=== PATIENT | male | born 1980 | race Caucasian/White ===

== ENCOUNTER 2018-08-22 10:18 | Inpatient (IN) | payer OTHER, SELFPAY ==
[2018-08-16 12:34] VITALS: BMI 28.8
[2018-08-22] VITALS (15 sets, daily range): BP systolic 109–138; BP diastolic 65–104; PULSE 58–97; RESP 9–20; TEMP 36.1–37.1; O2SAT 92–98; BMI 28.8
--- NOTE | 2018-08-22 | DI.RAD.S_ITS ---
PROCEDURE: XR CERVICAL SPINE 2V OR 3V INDICATIONS: C4-5, C6-7 ACDF (MOBI-C) TECHNIQUE: The 2 view(s) of the cervical spine were acquired. COMPARISON: [facility], , XR CERVICAL SPINE 2 OR 3 VIEWS, 06/16/2018, 10:00. FINDINGS: Bones: Intraoperative AP and lateral views of the cervical spine demonstrate post surgical changes compatible with C5-C6 ACDF, C4-C5 intervertebral disc disc prosthesis placement and C6-C7 intervertebral disc prosthesis placement. There is normal alignment and curvature of the cervical spine. No evidence of fracture or subluxation.. Soft tissues: No prevertebral soft tissue swelling. IMPRESSION: Postsurgical changes compatible with C5-C6 ACDF as well as C4-C5 and C6-C7 disc prosthesis placement. Dictated by: Claudia Jackson MD, PhD on 08/22/2018 at 14:21 Approved by: Claudia Jackson MD, PhD on 08/22/2018 at 14:23
[2018-08-22] MEDS: LACTATED RINGERS 1,000 ML 42 ML IV ×2 (10:45→14:39)
--- NOTE | 2018-08-22 11:30 | PM.PREOP ---
Pre-operative Note Interval Note History & Physical reviewed/Exam performed by Physician: Yes Changes to H&P: No
--- NOTE | 2018-08-22 11:30 | PM.OP.1 ---
Operative Date/Time/Diagnoses Date of procedure: 08/22/18 Time of procedure: 14:02 Pre-op diagnosis: cervical disc herniation with radiculopathy Post-op diagnosis: same Procedure & Clinicians Procedure: C4-5, C6-7 anterior diskectomy an artificial disc replacement Removal of previous anterior cervical fusion plate Use of microscope Same procedure as scheduled: Yes Indications: [age] year old male with intractable pain from cervical disc herniations. He had failed conservative management and requested operative intervention. Risks and benefits of surgery were discussed and appropriate consents were obtained. Surgeon: Sergey Martines Content Curator: Mercedes Garza Anesthesia Type: General Operative Notes Findings: None Closure Type: primary Specimen(s): none sent Prosthetic devices, grafts, tissues, transplants, or devices: Nhung Mobi-C artificial disc replacement removal of Synthes Vectra plate Applied: catheter Estimated Blood Loss (mL): 10 Blood products transfused: none Procedure in detail: Patient was brought to the operating room and intubated on the table. A time-out was performed. Preoperative antibiotics were given. The neck was prepped and draped in the standard sterile fashion. Using a skin fold, we used his previous 3 cm oblique incision on the left side. We used Bovie to go through the platysma and then did a standard anterolateral blunt dissection down to the precervical fascia. Fascia was nicked and elevated up. We exposed the plate for localization. We removed the old Synthes Vectra plate. We then subperiosteally elevated up the longus colli muscles. Self-retaining retractors were placed. Tiger pins were placed under x-ray guidance to be parallel to the endplates at C45. We then brought in the microscope. A scalpel used to perform an annulotomy. We then used a combination of pituitaries and curettes and Kerrison to perform a complete anterior diskectomy at C45. We took down the PLL and used Kerrison to remove any posterior disc material and osteophytes. The posterior disc was very gelatinous and adherent to the dura. We were able to peel it off the dura with the nerve hook but it took some dissection. At the end we could run the nerve hook cephalad caudally and out the foramen and everything was opened. We distracted open with the parallel ore mixer. We then used the horseshoes for sizing. We then used the trials. We then inserted a [id number] Mobi-C artificial disc replacement under fluoroscopic guidance for positioning. The traction was released and x-ray was checked again. We then went down to C67. The retractors were placed at this level. A complete diskectomy was performed with scalpel, pituitaries, and curettes at this level. we took down the PLL and removed the posterior disc material and osteophytes. There was a large extruded HNP on the right that came up as one piece when we released the PLL. We used the nerve hook to confirm that everything was adequately decompressed. We trialed and placed another [id number] size Mobi-C ADR under fluoroscopic guidance. The traction was released and x-rays were checked again. The self-retaining retractors and Tiger pins were removed and final x-rays taken. The wound was irrigated. There was no bleeding. The carotid was beating nicely. The platysma was closed. The superficial was closed. The skin was closed. A sterile dressing was placed. They were then extubated and brought to recovery room with no complications. Complications: none Condition: stable Disposition: PACU Plan for aftercare: Inpatient overnight.
--- NOTE | 2018-08-22 11:34 | P.OP_ITS ---
Operative Date/Time/Diagnoses Date of procedure: 08/22/18 Time of procedure: 14:02 Pre-op diagnosis: cervical disc herniation with radiculopathy Post-op diagnosis: same Procedure & Clinicians Procedure: C4-5, C6-7 anterior diskectomy an artificial disc replacement Removal of previous anterior cervical fusion plate Use of microscope Same procedure as scheduled: Yes Indications: [age] year old male with intractable pain from cervical disc herniations. He had failed conservative management and requested operative intervention. Risks and benefits of surgery were discussed and appropriate consents were obtained. Surgeon: Sergey Martines Ground Crewman: Mercedes Garza Anesthesia Type: General Operative Notes Findings: None Closure Type: primary Specimen(s): none sent Prosthetic devices, grafts, tissues, transplants, or devices: Nhung Mobi-C artificial disc replacement removal of Synthes Vectra plate Applied: catheter Estimated Blood Loss (mL): 10 Blood products transfused: none Procedure in detail: Patient was brought to the operating room and intubated on the table. A time-out was performed. Preoperative antibiotics were given. The neck was prepped and draped in the standard sterile fashion. Using a skin fold, we used his previous 3 cm oblique incision on the left side. We used Bovie to go through the platysma and then did a standard anterolateral blunt dissection down to the precervical fascia. Fascia was nicked and elevated up. We exposed the plate for localization. We removed the old Synthes Vectra plate. We then subperiosteally elevated up the longus colli muscles. Self- retaining retractors were placed. Custer pins were placed under x-ray guidance to be parallel to the endplates at C45. We then brought in the microscope. A scalpel used to perform an annulotomy. We then used a combination of pituitaries and curettes and Kerrison to perform a complete anterior diskectomy at C45. We took down the PLL and used Kerrison to remove any posterior disc material and osteophytes. The posterior disc was very gelatinous and adherent to the dura. We were able to peel it off the dura with the nerve hook but it took some dissection. At the end we could run the nerve hook cephalad caudally and out the foramen and everything was opened. We distracted open with the parallel submarine diver. We then used the horseshoes for sizing. We then used the trials. We then inserted a [id number] Mobi-C artificial disc replacement under fluoroscopic guidance for positioning. The traction was released and x-ray was checked again. We then went down to C67. The retractors were placed at this level. A complete diskectomy was performed with scalpel, pituitaries, and curettes at this level. we took down the PLL and removed the posterior disc material and osteophytes. There was a large extruded HNP on the right that came up as one piece when we released the PLL. We used the nerve hook to confirm that everything was adequately decompressed. We trialed and placed another [id number] size Mobi-C ADR under fluoroscopic guidance. The traction was released and x-rays were checked again. The self-retaining retractors and Custer pins were removed and final x-rays taken. The wound was irrigated. There was no bleeding. The carotid was beating nicely. The platysma was closed. The superficial was closed. The skin was closed. A sterile dressing was placed. They were then extubated and brought to recovery room with no complications. Complications: none Condition: stable Disposition: PACU Plan for aftercare: Inpatient overnight.
[2018-08-22] MEDS: CEFAZOLIN 2 GM/100 ML FROZ.PIGGY IV ×2 (12:15→21:43)
--- NOTE | 2018-08-22 12:53 | SUR.OPER ---
Supine, head on gel donut. Arms padded with gel pads, tucked at sides, towel roll under shoulders. Safety belt at thigh. Legs uncrossed. PILLOW UNDER KNEES AND GEL PAD UNDER HEELS
[2018-08-22] MEDS: THROMBIN (BOVINE) 5,000 UNIT VIAL 5000 UNIT TOP (13:08)
[2018-08-22] MEDS: SODIUM CHLORIDE 0.9% 1,000 ML, GENTAMICIN 80 MG IRR (13:10)
[2018-08-22] MEDS: BUPIVACAINE 0.25% W/ EPI 30 ML VIAL 60 ML INJ (14:03)
[2018-08-22] MEDS: HYDROMORPHONE 2 MG INJ 0.5 MG IV ×3 (14:40→15:20)
--- NOTE | 2018-08-22 15:00 | SUR.PHASEI ---
Very talkative, no moaning, grimace, non-verbal evidence of pain. Resp unlabored, skin warm and dry. 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 Both known to patient and Dr. gomez (per patient).
--- NOTE | 2018-08-22 15:23 | SUR.PHASEI ---
continues to talk continuously. Rx for various pain, plan to take to floor in 20 minutes. Calm, relaxed, resp unlabored, skin warm and dry.
--- NOTE | 2018-08-22 15:31 | SUR.PHASEI ---
States that his normal pain level on medication is 4-5, up to 7+ an hour before his medication is due. States that this is about his normal level of pain.
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
[2018-08-22] MEDS: HYDROCODONE/ACET 10/325 TABLET 1 TAB PO ×2 (16:14→21:38)
[2018-08-22] MEDS: LACTATED RINGERS 1,000 ML 125 ML IV ×2 (16:15→23:21)
[2018-08-22] MEDS: hydrOXYzine pamoate 25 MG CAPSULE PO ×2 (16:16→21:39)
[2018-08-22] MEDS: GABAPENTIN 600 MG TABLET PO ×2 (16:19→21:39)
[2018-08-22] MEDS: HYDROMORPHONE 0.5 MG INJ IV ×2 (17:50→23:20)
[2018-08-22] MEDS: NAPROXEN 250 MG TABLET 500 MG PO (21:38)
[2018-08-22] MEDS: DOCUSATE 100 MG CAPSULE PO (21:38)
[2018-08-22] MEDS: SENNOSIDES 8.6 MG TABLET 17.2 MG PO (21:38)
--- NOTE | 2018-08-22 22:19 | PC.ADMIT ---
Addendum entered by Josy Carmichael R.N. 08/22/18 22:48: helps pt toilet. pt able to stand for a while at bedside to void. unable to void while laying down. Pt calls appropriately. encouraged to call staff if needing assistance. Original Note: 1600-Admission Note: pt arrived to floor. up from waiting area. oriented to room and hospital procedures. Pt given ice chips. tolerating and some pudding with pills. Pt complains of pain. pt able to sleep for a few hours after IV dilaudid. Pt at bedside. Pt tolerating ice chips water and broth. pudding. etc. pt has soft collar on. did remove for a minute to ice close to wound. dressing c.d.i. Pt taught deep breathing. on 1L nc. does desat. encouraged to deep breathe. Pt up with sba with help. does stand pivot at baseline. Pt voided in urinal. pt cooperative and pleasant. appreciates staff. will continue to monitor.
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
[2018-08-23] MEDS: HYDROMORPHONE 0.5 MG INJ IV (01:25)
[2018-08-23] MEDS: hydrOXYzine pamoate 25 MG CAPSULE PO ×2 (01:25→06:16)
[2018-08-23] MEDS: CEFAZOLIN 2 GM/100 ML FROZ.PIGGY IV (03:57)
[2018-08-23] MEDS: HYDROCODONE/ACET 10/325 TABLET 1 TAB PO ×2 (03:58→08:49)
[2018-08-23 04:03] VITALS: BP 116/63; PULSE 88; RESP 16; TEMP 36.5; O2SAT 95
[2018-08-23] MEDS: LACTATED RINGERS 1,000 ML 125 ML IV (06:59)
[2018-08-23 07:30] VITALS: BP 127/74; PULSE 88; RESP 14; TEMP 36.3; O2SAT 98
--- NOTE | 2018-08-23 07:54 | P.PN_ITS ---
Subjective Date Patient Seen: 08/23/18 Time Patient Seen: 07:53 Interval history: He is doing very well. The forearm pain has mostly resolved and the shoulder is getting better. Exam Vital Signs (past 8 hours): - 08/23/18 04:03 Temperature 97.7 F Pulse Rate 88 Respiratory Rate 16 Blood Pressure 116/63 Pulse Oximetry 95 Oxygen Delivery Method Nasal Cannula Oxygen Flow Rate 1 Const Orientation: alert and oriented x3 Back/Spine/Pelvis Other: Dressing CDI. 5/5 motor both upper extremities except for 4/5 right communication professor Assessment & Plan Post-op Postoperative Procedures Operation Date: 08/22/18 12:15 Actual Procedures Side Surgeon p C4-5,C6-7 Anterior discectomy w/Art Disc Replacement, Removal of old Not Applicable Sergey Martines MD He is doing very well. He has been up and walking around. He request discharge and should be fine. Quality VTE Deep Vein Thrombosis/Pulmonary Embolism Present on Admission: No
[2018-08-23] MEDS: LOSARTAN 50 MG TABLET 100 MG PO (08:37)
[2018-08-23] MEDS: NAPROXEN 250 MG TABLET 500 MG PO (08:37)
[2018-08-23] MEDS: PARoxetine 20 MG TABLET PO (08:37)
[2018-08-23] MEDS: GABAPENTIN 600 MG TABLET PO (08:38)
[2018-08-23] MEDS: hydroCHLOROthiazide 25 MG TABLET PO (08:39)
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
== END 2018-08-23 09:57 | disposition home or self-care (01) | DRG 518 ==
PROVIDERS: Admitting Provider Orthopaedic Surgery; Family Provider Nurse Practitioner Family; Visit Provider Orthopaedic Surgery
PROC: 0RR30JZ Replacement of Cervical Vertebral Disc with Synthetic Substitute, Open Approach (ICD-10-PCS; CPT 22856; principal; 2018-08-22 12:15)
DX: M50.221 Other cervical disc displacement at C4-C5 level (principal); M47.12 Other spondylosis with myelopathy, cervical region; S16.1XXD Strain of muscle, fascia and tendon at neck level, subsequent encounter; F17.210 Nicotine dependence, cigarettes, uncomplicated; I10 Essential (primary) hypertension
CPT/HCPCS: 72040; 76000; 97162; 99406; C1776; J0690; J1170; J1200; J2405; J2704; J3010